=== PATIENT | male | born 1980 ===

== ENCOUNTER 2022-06-09 16:35 | Inpatient (IN) | payer SELFPAY ==
[~2022-06-09 16:35] MED LIST: Heparin 10,000 UNITS/ 10 ML VIAL ONE; Vancomycin Hemodialysis Sliding Scale FS SCH
[2022-06-09 16:58] LABS: #Eosinphils 0.1 thou/uL (0.0-0.7); #Lymphocytes 2.4 thou/uL (1.20-3.40); #Neutrophils 10.9 thou/uL (1.40-6.50); %Basophils 0.3 % (0.0-1.0); %Eosinophils 0.4 % (0.0-10.0); %Lymphocytes 16.6 % (21.0-51.0); %Monocytes 6.9 % (0.0-10.0); %Neutrophils 75.7 % (42.0-75.0); Hemoglobin 12.3 g/dL (14.0-18.0); Mean Corpuscular HGB CONC 31.2 g/dL (32.0-36.0); Mean Corpuscular Hemoglobin 30.7 pg (27.0-31.0); Mean Corpuscular Volume 98.3 fL (78.0-98.0); Platelet Count 320 thou/uL (130-400); RBC Distribution Width 12.3 % (11.5-14.5); Red Blood Cell (RBC) Count 4.03 mill/uL (4.70-6.10); White Blood Cell (WBC) Count 14.5 thou/uL (4.8-10.8)
[2022-06-09 17:09] LABS: INR-International Normal Ratio 1.5; PTT 35.3 sec (22.9-36.1); Prothrombin Time 18.3 sec (12.0-14.7)
[2022-06-09] MEDS ORDERED: Cefepime 2 GM VIAL ONE (17:09)
[2022-06-09 17:20] LABS: ALT (SGPT) 42 U/L (8-55); AST (SGOT) 71 U/L (5-34); Albumin 4.2 g/dL (3.5-5.0); Alkaline Phosphatase 101 U/L (40-110); BUN (Urea Nitrogen) 96 mg/dL (8.9-20.6); Bilirubin, Total 0.4 mg/dL (0.2-1.2); Calc. Creatinine Clearance 0 mL/min (70-130); Calcium 10.2 mg/dL (7.8-10.44); Chloride 86 mmol/L (98-107); Estimated GFR 4; Globulin 3.6 g/dL (2.4-3.5); Glucose 183 mg/dL (70-105); Potassium 5.4 mmol/L (3.5-5.1); Protein, Total 7.8 g/dL (6.0-8.3); Sodium 140 mmol/L (136-145)
[2022-06-09 17:34] LABS: Actual Bicarbonate (HCO3a) 1.6 mEq/L (22-28); Analyzer IN Cardio ER; Calcium, Ionized (arterial) 1.11 mmol/L (1.12-1.30); Carboxyhemoglobin (COHb) 0.1 gm% (0.0-3.0); Hemoglobin (Hb) 10.3 g/dL (14.0-18.0); O2 Tension (PaO2), arterial 217.5 mmHg (80.0-100.0); Potassium - ABG Lab 4.96 mmol/L (3.70-5.30)
[2022-06-09 17:37] LABS: Carbon Dioxide Less than 8 mmol/L (22-29)
[2022-06-09] MEDS ORDERED: Ketamine 50 MG/ML (10ML VIAL) ONE (17:44)
[2022-06-09] MEDS ORDERED: Succinylcholine 200 MG/10 ml SYRINGE FS ONE (17:44)
[2022-06-09] MEDS ORDERED: NOREPINEPHRINE 8 MG/250 ML-D5W 250 ML ONE (17:49)
[2022-06-09 17:58] LABS: Base Excess (BEa) -35.1 mEq/L (-2.0 to +3.0); CO2 Tension 16.9 mmHg (35.0-45.0)
[2022-06-09 17:59] LABS: ALV-art Gradient 474.375 mmHg (0-20); Puncture Site LBA
[2022-06-09 18:06] LABS: SARS-CoV-2 NAA Rapid Test Not Detected (NotDetected)
[2022-06-09 18:22] LABS: Actual Bicarbonate (HCO3a) 1.6 mEq/L (22-28); Analyzer IN Cardio ER; Calcium, Ionized (arterial) 1.12 mmol/L (1.12-1.30); Carboxyhemoglobin (COHb) 0.2 gm% (0.0-3.0); Hemoglobin (Hb) 11.2 g/dL (14.0-18.0); O2 Tension (PaO2), arterial 177.8 mmHg (80.0-100.0); Potassium - ABG Lab 5.21 mmol/L (3.70-5.30)
[2022-06-09] MEDS ORDERED: Fentanyl 100 MCG/2 ML VIAL ONE ×2 (18:27→18:34)
[2022-06-09 18:30] LABS: Acetaminophen Less than 10.0 mcg/mL (10.0-30.0); Alcohol Less than 10 mg/dL (Less than 10); CK (CPK) 900 U/L (30-200); Salicylate Less than 8.0 mg/dL (15.0-30.0)
[2022-06-09 18:30] LABS: pH, Arterial 6.54 (7.35-7.45)
[2022-06-09] MEDS ORDERED: Fentanyl CADD 100 ML IV SCH (18:30)
[2022-06-09 18:31] LABS: Base Excess (BEa) -36.9 mEq/L (-2.0 to +3.0); CO2 Tension 19.3 mmHg (35.0-45.0)
[2022-06-09] MEDS ORDERED: Rocuronium Bromide 10 MG/ML (10ML VIAL) ONE (18:33)
[2022-06-09] MEDS ORDERED: Vecuronium 10 MG VIAL IVP PRN (19:14)
[2022-06-09] MEDS ORDERED: Ventilator Sedation Protocol 1 EACH FS ONE (19:14)
[2022-06-09] MEDS ORDERED: Propofol BOLUS 1,000 MG/100 ML VIAL IV PRN (19:45)
[2022-06-09] MEDS ORDERED: Propofol 1,000 MG/100 ML VIAL IV PRN (19:45)
[2022-06-09] MEDS ORDERED: DISCONTINUE PREVIOUS NARCOTIC PAIN MEDICATIONS AND BENZODIAZEPINES FS SCH (19:45)
[2022-06-09] MEDS ORDERED: Fentanyl BOLUS 250 ML IVPB PRN (19:45)
[2022-06-09] MEDS ORDERED: Morphine 2 MG/ML VIAL SLOW IVP PRN (19:45)
[2022-06-09] MEDS ORDERED: Sodium Bicarb 50 MEQ/50 ML VIAL ONE (19:57)
[2022-06-09] MEDS ORDERED: Ondansetron PF 4 MG/2 ML Vial IVP PRN (19:58)
[2022-06-09] MEDS ORDERED: Sodium Bicarb 50 MEQ/50 ML VIAL IVP SCH (20:00)
[2022-06-09] MEDS ORDERED: Pantoprazole 40 MG VIAL IVP SCH (20:00)
[2022-06-09] MEDS ORDERED: Acetaminophen 650 MG/20.3 ML UDCUP PER TUBE PRN (20:05)
[2022-06-09] MEDS: Sodium Bicarbonate 140 MEQ in Dextrose 5% in Water 1,000 ML IV SCH (20:05)
[2022-06-09] MEDS ORDERED: VANCOMYCIN 1.25 GM/250 ML BAG 1.25 GM in Premix Bag 1 BAG IVPB SCH (20:30)
[2022-06-09 20:46] LABS: Magnesium 2.8 mg/dL (1.6-2.6)
[2022-06-09] MEDS: Thiamine HCl 200 MG/2 ML VIAL SLOW IVP SCH (21:09)
[2022-06-09 21:12] LABS: Lactic Acid 22.1 mmol/L (0.5-2.2)
[2022-06-09] MEDS ORDERED: HumaLOG 300 UNITS/3 ML VIAL SC PRN (21:25)
[2022-06-09] MEDS ORDERED: Dextrose 50% Abboject 50 ML SYRINGE SLOW IVP PRN (21:25)
[2022-06-09] MEDS ORDERED: Dextrose 5% in Water 1,000 ML IV PRN (21:25)
[2022-06-09 22:39] LABS: Hemoglobin 11.5 g/dL (14.0-18.0)
[2022-06-09] MEDS: NOREPINEPHRINE 8 MG/250 ML-D5W 250 ML IVPB SCH (22:42)
[2022-06-09] MEDS: HumaLOG 300 UNITS/3 ML VIAL SC PRN (22:50)
[2022-06-09 23:18] LABS: Troponin I 0.447 ng/mL (< 0.028)
[2022-06-10 00:22] LABS: HBSAg Index 0.24 S/CO (0-0.99); Hep B Core Total Ab Non-Reactive (NonReactive); Hep B Core Total Index 0.08 S/CO (0-0.79); Hep B Surf Ag Non-Reactive S/CO (NonReactive)
[2022-06-10 00:23] LABS: HBSAB Concentration Less than 8.00 mIU/mL; Hep B Surf AB Non-Reactive (NonReactive)
[2022-06-10 00:24] LABS: Hep C IgG Ab Non-Reactive (NonReactive); Hep C Index 0.13 S/CO (0-0.79)
[2022-06-10 01:40] LABS: BUN (Urea Nitrogen) 57 mg/dL (8.9-20.6); Calc. Creatinine Clearance 10 mL/min (70-130); Calcium 7.6 mg/dL (7.8-10.44); Carbon Dioxide Less than 8 mmol/L (22-29); Chloride 94 mmol/L (98-107); Estimated GFR 8; Glucose 243 mg/dL (70-105); Potassium 4.6 mmol/L (3.5-5.1); Sodium 137 mmol/L (136-145)
[2022-06-10] MEDS: NOREPINEPHRINE 8 MG/250 ML-D5W 250 ML IVPB SCH ×3 (02:09→15:45)
[2022-06-10] MEDS: Midazolam HCl 2 mg/2 ml Vial SLOW IVP PRN ×4 (02:39→14:17)
[2022-06-10] MEDS: HumaLOG 300 UNITS/3 ML VIAL SC PRN ×2 (04:27→20:48)
[2022-06-10 05:14] LABS: PTT 33.4 sec (22.9-36.1)
[2022-06-10 05:31] LABS: INR-International Normal Ratio 1.5; Prothrombin Time 18.1 sec (12.0-14.7)
[2022-06-10 05:35] LABS: ALT (SGPT) 195 U/L (8-55); AST (SGOT) 351 U/L (5-34); Albumin 2.8 g/dL (3.5-5.0); Alkaline Phosphatase 112 U/L (40-110); Anion Gap 44 mmol/L (10-20); BUN (Urea Nitrogen) 61 mg/dL (8.9-20.6); Bilirubin, Total 0.7 mg/dL (0.2-1.2); CK (CPK) 622 U/L (30-200); Calc. Creatinine Clearance 10 mL/min (70-130); Calcium 6.8 mg/dL (7.8-10.44); Carbon Dioxide 9 mmol/L (22-29); Chloride 86 mmol/L (98-107); Estimated GFR 8; Globulin 2.3 g/dL (2.4-3.5); Glucose 587 mg/dL (70-105); Lipase 174 U/L (8-78); Magnesium 1.8 mg/dL (1.6-2.6); Potassium 5.7 mmol/L (3.5-5.1); Protein, Total 5.1 g/dL (6.0-8.3); Sodium 133 mmol/L (136-145)
[2022-06-10 05:43] LABS: Band 2 % (5-11); Hemoglobin 11.3 g/dL (14.0-18.0); Lymphocytes 1 % (21-51); MDiff Complete? YES; Mean Corpuscular Hemoglobin 31.5 pg (27.0-31.0); Mean Corpuscular Volume 95.4 fL (78.0-98.0); Mean Platelet Volume 8.5 fL (7.4-10.4); Monocytes 8 % (0-10); Neutrophil 89 % (42-75); Platelet Count 248 thou/uL (130-400); Platelet Morphology Comment Appears Adequate; RBC Distribution Width 12.1 % (11.5-14.5); RBC Morphology Normal; Red Blood Cell (RBC) Count 3.59 mill/uL (4.70-6.10); White Blood Cell (WBC) Count 20.6 thou/uL (4.8-10.8)
[2022-06-10] MEDS ORDERED: HumaLOG 300 UNITS/3 ML VIAL SC PRN (05:45)
[2022-06-10 05:47] LABS: Lactic Acid 13.9 mmol/L (0.5-2.2)
[2022-06-10 06:43] LABS: ALT (SGPT) 204 U/L (8-55); AST (SGOT) 345 U/L (5-34); Alkaline Phosphatase 119 U/L (40-110); Anion Gap 42 mmol/L (10-20); BUN (Urea Nitrogen) 64 mg/dL (8.9-20.6); Bilirubin, Total 0.7 mg/dL (0.2-1.2); Calc. Creatinine Clearance 10 mL/min (70-130); Chloride 88 mmol/L (98-107); Estimated GFR 7; Globulin 2.4 g/dL (2.4-3.5); Glucose 515 mg/dL (70-105); Potassium 5.9 mmol/L (3.5-5.1); Protein, Total 5.4 g/dL (6.0-8.3); Sodium 132 mmol/L (136-145)
[2022-06-10 06:45] LABS: Vancomycin, Random 23.8 ug/mL (See Comment)
[2022-06-10 06:46] LABS: Carbon Dioxide 8 mmol/L (22-29)
[2022-06-10] MEDS: Sodium Bicarbonate 140 MEQ in Dextrose 5% in Water 1,000 ML IV SCH ×2 (07:33→18:27)
[2022-06-10 07:38] LABS: Actual Bicarbonate (HCO3a) 7.6 mEq/L (22-28); Base Excess (BEa) -17.2 mEq/L (-2.0 to +3.0); Carboxyhemoglobin (COHb) 0.2 gm% (0.0-3.0); Hemoglobin (Hb) 11.9 g/dL (14.0-18.0); O2 Tension (PaO2), arterial 111.1 mmHg (80.0-100.0); Potassium - ABG Lab 5.46 mmol/L (3.70-5.30); pH, Arterial 7.26 (7.35-7.45)
[2022-06-10] MEDS ORDERED: HUMULIN R 100 UNITS in Sodium Chloride 0.9% 100 ML IVPB SCH (07:45)
[2022-06-10 07:46] LABS: CO2 Tension 17.3 mmHg (35.0-45.0); Puncture Site RRA
[2022-06-10 07:47] LABS: ALV-art Gradient 81.175 mmHg (0-20)
[2022-06-10 08:21] LABS: Glucose 480 mg/dL (70-105)
[2022-06-10] MEDS: Pantoprazole 40 MG VIAL IVP SCH (08:21)
[2022-06-10] MEDS ORDERED: Heparin 10,000 UNITS/ 10 ML VIAL ONE (09:32)
[2022-06-10 09:33] LABS: Glucose 475 mg/dL (70-105)
[2022-06-10 10:33] LABS: Glucose 392 mg/dL (70-105)
[2022-06-10 11:04] LABS: Bilirubin Negative (Negative); Blood, Urine 3+ (Negative); Clarity Extra Turbid (Clear); Glucose, Urine (Dipstick) 200 mg/dL (Negative); Ketone, Urine 10 mg/dL (Negative); Leukocyte 25 Leu/uL (Negative); Nitrite Negative (Negative); Protein, Urine (Dipstick) 600 mg/dL (Neg-Trace); Specific Gravity, Urine 1.025 (1.002-1.036); Squamous Epithelial 0-3 HPF (0-3); Urobilinogen Normal mg/dL (Less than 2); Yeast-Budding 2+ HPF (None Seen)
[2022-06-10 11:15] LABS: Bacteria/HPF 2+ HPF (None Seen)
[2022-06-10 11:44] LABS: Glucose 200 mg/dL (70-105)
[2022-06-10 15:23] LABS: Glucose 138 mg/dL (70-105)
[2022-06-10] MEDS ORDERED: Cefepime 1 GM in Sodium Chloride 0.9% 100 ML IVPB SCH (17:00)
[2022-06-10] MEDS ORDERED: Cefepime 0.5 GM in Admixture Fee 1 EACH IVPB SCH (17:00)
[2022-06-10] MEDS: Cefepime 0.5 GM in Admixture Fee 1 EACH IVPB SCH (18:26)
[2022-06-10] MEDS ORDERED: Fentanyl CADD 100 ML ONE (18:48)
[2022-06-10] MEDS: Fentanyl CADD 100 ML IV SCH (18:50)
[2022-06-10 20:30] LABS: Glucose 273 mg/dL (70-105)
[2022-06-10 20:32] LABS: Creatinine, Urine 92.02 mg/dL (63-166)
[2022-06-10] MEDS: Thiamine HCl 200 MG/2 ML VIAL SLOW IVP SCH (20:46)
[2022-06-11 00:49] LABS: Glucose 259 mg/dL (70-105)
[2022-06-11] MEDS: Midazolam HCl 2 mg/2 ml Vial SLOW IVP PRN (00:58)
[2022-06-11] MEDS: HumaLOG 300 UNITS/3 ML VIAL SC PRN ×5 (01:07→20:01)
[2022-06-11 04:57] LABS: #Lymphocytes 1.5 thou/uL (1.20-3.40); #Monocytes 0.9 thou/uL (0.11-0.59); #Neutrophils 8.6 thou/uL (1.40-6.50); %Basophils 0.2 % (0.0-1.0); %Eosinophils 0.2 % (0.0-10.0); %Lymphocytes 13.7 % (21.0-51.0); %Monocytes 8.3 % (0.0-10.0); %Neutrophils 77.6 % (42.0-75.0); Hemoglobin 10.2 g/dL (14.0-18.0); Mean Corpuscular HGB CONC 35.4 g/dL (32.0-36.0); Mean Corpuscular Hemoglobin 31.7 pg (27.0-31.0); Mean Corpuscular Volume 89.4 fL (78.0-98.0); Mean Platelet Volume 8.4 fL (7.4-10.4); Platelet Count 153 thou/uL (130-400); Red Blood Cell (RBC) Count 3.22 mill/uL (4.70-6.10)
[2022-06-11 05:03] LABS: Phosphorus 3.3 mg/dL (2.3-4.7)
[2022-06-11] MEDS: Sodium Bicarbonate 140 MEQ in Dextrose 5% in Water 1,000 ML IV SCH ×2 (05:04→17:36)
[2022-06-11 05:05] LABS: ALT (SGPT) 129 U/L (8-55); AST (SGOT) 126 U/L (5-34); Albumin 2.7 g/dL (3.5-5.0); Alkaline Phosphatase 99 U/L (40-110); Anion Gap 26 mmol/L (10-20); BUN (Urea Nitrogen) 45 mg/dL (8.9-20.6); Calc. Creatinine Clearance 14 mL/min (70-130); Calcium 7.3 mg/dL (7.8-10.44); Carbon Dioxide 20 mmol/L (22-29); Chloride 90 mmol/L (98-107); Estimated GFR 11; Globulin 2.1 g/dL (2.4-3.5); Glucose 238 mg/dL (70-105); Magnesium 1.7 mg/dL (1.6-2.6); Potassium 3.7 mmol/L (3.5-5.1); Protein, Total 4.8 g/dL (6.0-8.3); Sodium 132 mmol/L (136-145)
[2022-06-11 05:08] LABS: Glucose 234 mg/dL (70-105)
[2022-06-11 05:13] LABS: Troponin I 4.358 ng/mL (< 0.028)
[2022-06-11 06:30] LABS: Vancomycin, Random 15.8 ug/mL (See Comment)
[2022-06-11 07:52] LABS: Actual Bicarbonate (HCO3a) 22.6 mEq/L (22-28); Base Excess (BEa) 3.9 mEq/L (-2.0 to +3.0); Calcium, Ionized (arterial) 0.88 mmol/L (1.12-1.30); Carboxyhemoglobin (COHb) 0.3 gm% (0.0-3.0); Hemoglobin (Hb) 10.8 g/dL (14.0-18.0); O2 Tension (PaO2), arterial 134.6 mmHg (80.0-100.0); Potassium - ABG Lab 3.12 mmol/L (3.70-5.30)
[2022-06-11 07:59] LABS: ALV-art Gradient 55.425 mmHg (0-20); CO2 Tension 19.1 mmHg (35.0-45.0); Puncture Site RRA; pH, Arterial 7.69 (7.35-7.45)
[2022-06-11] MEDS: Pantoprazole 40 MG VIAL IVP SCH (08:35)
[2022-06-11] MEDS ORDERED: Heparin 10,000 UNITS/ 10 ML VIAL ONE (09:35)
[2022-06-11] MEDS: Fentanyl CADD 100 ML IV SCH (16:53)
[2022-06-11] MEDS ORDERED: Vancomycin HCl 250 MG in Sodium Chloride 0.9% 100 ML IVPB SCH (17:00)
[2022-06-11] MEDS: Thiamine HCl 200 MG/2 ML VIAL SLOW IVP SCH (20:32)
[2022-06-11] MEDS: Heparin 5,000 UNITS/ML VIAL SC SCH (20:33)
[2022-06-11] MEDS: Insulin Glargine 30 UNITS/0.3 ML VIAL SC SCH (22:17)
[2022-06-12] MEDS: HumaLOG 300 UNITS/3 ML VIAL SC PRN ×5 (01:00→20:17)
[2022-06-12 04:15] LABS: ALT (SGPT) 89 U/L (8-55); AST (SGOT) 72 U/L (5-34); Albumin 2.5 g/dL (3.5-5.0); Alkaline Phosphatase 112 U/L (40-110); Anion Gap 14 mmol/L (10-20); BUN (Urea Nitrogen) 24 mg/dL (8.9-20.6); Bilirubin, Total 0.9 mg/dL (0.2-1.2); Calc. Creatinine Clearance 24 mL/min (70-130); Calcium 7.3 mg/dL (7.8-10.44); Carbon Dioxide 30 mmol/L (22-29); Chloride 94 mmol/L (98-107); Estimated GFR 20; Globulin 2.2 g/dL (2.4-3.5); Glucose 273 mg/dL (70-105); Magnesium 1.6 mg/dL (1.6-2.6); Potassium 3.1 mmol/L (3.5-5.1); Protein, Total 4.7 g/dL (6.0-8.3); Sodium 135 mmol/L (136-145)
[2022-06-12 04:45] LABS: #Eosinphils 0.1 thou/uL (0.0-0.7); #Lymphocytes 0.8 thou/uL (1.20-3.40); #Monocytes 0.4 thou/uL (0.11-0.59); #Neutrophils 8.2 thou/uL (1.40-6.50); %Basophils 0.3 % (0.0-1.0); %Eosinophils 0.6 % (0.0-10.0); %Lymphocytes 8.6 % (21.0-51.0); %Monocytes 4.1 % (0.0-10.0); %Neutrophils 86.4 % (42.0-75.0); Hemoglobin 9.3 g/dL (14.0-18.0); Large Platelets SLIGHT; MDiff Complete? YES; Mean Corpuscular HGB CONC 34.7 g/dL (32.0-36.0); Mean Corpuscular Hemoglobin 31.7 pg (27.0-31.0); Mean Corpuscular Volume 91.2 fL (78.0-98.0); Mean Platelet Volume 9.2 fL (7.4-10.4); Platelet Count 92 thou/uL (130-400); Platelet Morphology Comment Appears Decreased; RBC Distribution Width 11.9 % (11.5-14.5); RBC Morphology Normal; Red Blood Cell (RBC) Count 2.92 mill/uL (4.70-6.10); White Blood Cell (WBC) Count 9.5 thou/uL (4.8-10.8)
[2022-06-12] MEDS: Sodium Bicarbonate 140 MEQ in Dextrose 5% in Water 1,000 ML IV SCH (05:27)
[2022-06-12 07:51] LABS: Actual Bicarbonate (HCO3a) 33.7 mEq/L (22-28); Base Excess (BEa) 11.2 mEq/L (-2.0 to +3.0); Calcium, Ionized (arterial) 0.92 mmol/L (1.12-1.30); Carboxyhemoglobin (COHb) 0.3 gm% (0.0-3.0); Hemoglobin (Hb) 9.3 g/dL (14.0-18.0); O2 Tension (PaO2), arterial 84.3 mmHg (80.0-100.0); Potassium - ABG Lab 2.91 mmol/L (3.70-5.30)
[2022-06-12 08:08] LABS: Puncture Site RB; pH, Arterial 7.59 (7.35-7.45)
[2022-06-12] MEDS: Pantoprazole 40 MG VIAL IVP SCH (08:51)
[2022-06-12] MEDS: NS 0.9% w/ 40 MEQ KCL 1,000 ML IV SCH ×2 (11:14→20:36)
[2022-06-12] MEDS ORDERED: Magnesium 2 GM/50 ML(in water) 2 GM in Premix Bag 1 BAG IVPB SCH (12:45)
[2022-06-12] MEDS: Heparin 5,000 UNITS/ML VIAL SC SCH (13:59)
[2022-06-12] MEDS: Cefepime 0.5 GM in Admixture Fee 1 EACH IVPB SCH (18:23)
[2022-06-12] MEDS: Insulin Glargine 30 UNITS/0.3 ML VIAL SC SCH (20:17)
[2022-06-12] MEDS: Thiamine HCl 200 MG/2 ML VIAL SLOW IVP SCH (20:27)
[2022-06-13] MEDS: NS 0.9% w/ 40 MEQ KCL 1,000 ML IV SCH ×2 (04:42→09:32)
[2022-06-13 05:51] LABS: #Lymphocytes 0.8 thou/uL (1.20-3.40); #Monocytes 0.6 thou/uL (0.11-0.59); #Neutrophils 7.2 thou/uL (1.40-6.50); %Basophils 0.2 % (0.0-1.0); %Eosinophils 0.2 % (0.0-10.0); %Lymphocytes 9.5 % (21.0-51.0); %Monocytes 6.5 % (0.0-10.0); %Neutrophils 83.6 % (42.0-75.0); Hemoglobin 8.7 g/dL (14.0-18.0); Mean Corpuscular Hemoglobin 30.8 pg (27.0-31.0); Mean Corpuscular Volume 90.6 fL (78.0-98.0); Mean Platelet Volume 9.2 fL (7.4-10.4); Platelet Count 89 thou/uL (130-400); RBC Distribution Width 11.8 % (11.5-14.5); Red Blood Cell (RBC) Count 2.82 mill/uL (4.70-6.10); White Blood Cell (WBC) Count 8.7 thou/uL (4.8-10.8)
[2022-06-13 06:17] LABS: ALT (SGPT) 60 U/L (8-55); AST (SGOT) 49 U/L (5-34); Albumin 2.5 g/dL (3.5-5.0); Alkaline Phosphatase 140 U/L (40-110); Anion Gap 14 mmol/L (10-20); BUN (Urea Nitrogen) 37 mg/dL (8.9-20.6); Bilirubin, Total 0.5 mg/dL (0.2-1.2); Calc. Creatinine Clearance 18 mL/min (70-130); Calcium 7.2 mg/dL (7.8-10.44); Carbon Dioxide 27 mmol/L (22-29); Chloride 99 mmol/L (98-107); Estimated GFR 14; Globulin 2.3 g/dL (2.4-3.5); Glucose 162 mg/dL (70-105); Potassium 3.6 mmol/L (3.5-5.1); Protein, Total 4.8 g/dL (6.0-8.3); Sodium 136 mmol/L (136-145)
[2022-06-13 06:50] LABS: Actual Bicarbonate (HCO3a) 28.2 mEq/L (22-28); Base Excess (BEa) 7.1 mEq/L (-2.0 to +3.0); CO2 Tension 27.7 mmHg (35.0-45.0); Calcium, Ionized (arterial) 0.98 mmol/L (1.12-1.30); Carboxyhemoglobin (COHb) 0.3 gm% (0.0-3.0); Hemoglobin (Hb) 9.1 g/dL (14.0-18.0); O2 Tension (PaO2), arterial 76.5 mmHg (80.0-100.0); Potassium - ABG Lab 3.59 mmol/L (3.70-5.30)
[2022-06-13 06:54] LABS: ALV-art Gradient 102.775 mmHg (0-20); Puncture Site RRA; pH, Arterial 7.63 (7.35-7.45)
[2022-06-13] MEDS ORDERED: Heparin 5,000 UNITS/ML VIAL SC SCH (09:00)
[2022-06-13] MEDS: Pantoprazole 40 MG VIAL IVP SCH (09:31)
[2022-06-13] MEDS ORDERED: Heparin 10,000 UNITS/ 10 ML VIAL ONE (12:45)
[2022-06-13] MEDS: Cefepime 0.5 GM in Admixture Fee 1 EACH IVPB SCH (18:44)
[2022-06-13] MEDS: Insulin Glargine 30 UNITS/0.3 ML VIAL SC SCH (20:57)
[2022-06-13] MEDS: Thiamine HCl 200 MG/2 ML VIAL SLOW IVP SCH (20:58)
[2022-06-13] MEDS ORDERED: Dexamethasone 4 mg/ml Vial SLOW IVP SCH (23:45)
[2022-06-13] MEDS ORDERED: Furosemide 40 MG/4 ML VIAL SLOW IVP SCH (23:45)
[2022-06-14 00:55] LABS: #Lymphocytes 0.5 thou/uL (1.20-3.40); #Monocytes 0.5 thou/uL (0.11-0.59); #Neutrophils 10.2 thou/uL (1.40-6.50); %Basophils 0.2 % (0.0-1.0); %Eosinophils 0.2 % (0.0-10.0); %Lymphocytes 4.6 % (21.0-51.0); %Monocytes 4.7 % (0.0-10.0); %Neutrophils 90.3 % (42.0-75.0); Hemoglobin 9.5 g/dL (14.0-18.0); Mean Corpuscular HGB CONC 34.9 g/dL (32.0-36.0); Mean Corpuscular Hemoglobin 32.5 pg (27.0-31.0); Mean Corpuscular Volume 93.1 fL (78.0-98.0); Mean Platelet Volume 9.3 fL (7.4-10.4); Platelet Count 105 thou/uL (130-400); RBC Distribution Width 11.8 % (11.5-14.5); Red Blood Cell (RBC) Count 2.92 mill/uL (4.70-6.10); White Blood Cell (WBC) Count 11.3 thou/uL (4.8-10.8)
[2022-06-14 01:14] LABS: ALT (SGPT) 56 U/L (8-55); AST (SGOT) 42 U/L (5-34); Albumin 2.7 g/dL (3.5-5.0); Alkaline Phosphatase 156 U/L (40-110); Anion Gap 12 mmol/L (10-20); BUN (Urea Nitrogen) 24 mg/dL (8.9-20.6); Bilirubin, Total 0.8 mg/dL (0.2-1.2); Calc. Creatinine Clearance 26 mL/min (70-130); Calcium 7.6 mg/dL (7.8-10.44); Carbon Dioxide 27 mmol/L (22-29); Chloride 105 mmol/L (98-107); Estimated GFR 22; Globulin 2.5 g/dL (2.4-3.5); Glucose 147 mg/dL (70-105); Potassium 4.3 mmol/L (3.5-5.1); Protein, Total 5.2 g/dL (6.0-8.3); Sodium 140 mmol/L (136-145)
[2022-06-14] MEDS ORDERED: Acetaminophen 650 MG Suppository PR SCH (02:15)
[2022-06-14] MEDS: NS 0.9% w/ 40 MEQ KCL 1,000 ML IV SCH ×2 (02:25→12:37)
[2022-06-14] MEDS ORDERED: Meropenem 1 GM in Sodium Chloride 0.9% 100 ML IVPB SCH (03:00)
[2022-06-14] MEDS: Pantoprazole 40 MG VIAL IVP SCH (10:06)
[2022-06-14] MEDS: Meropenem 500 MG in Sodium Chloride 0.9% 100 ML IVPB SCH (10:12)
[2022-06-14] MEDS: HumaLOG 300 UNITS/3 ML VIAL SC PRN (12:12)
[2022-06-14 16:13] LABS: Heparin-Induced Ab (HITA) 0.13 OD (0.000-0.400)
[2022-06-14] MEDS: Insulin Glargine 30 UNITS/0.3 ML VIAL SC SCH (21:38)
[2022-06-14] MEDS: Thiamine HCl 200 MG/2 ML VIAL SLOW IVP SCH (21:39)
[2022-06-14] MEDS: Heparin 5,000 UNITS/ML VIAL SC SCH (21:39)
[2022-06-15 04:30] LABS: #Lymphocytes 0.9 thou/uL (1.20-3.40); #Monocytes 0.9 thou/uL (0.11-0.59); #Neutrophils 8.9 thou/uL (1.40-6.50); %Basophils 0.1 % (0.0-1.0); %Eosinophils 0.1 % (0.0-10.0); %Lymphocytes 8.6 % (21.0-51.0); %Monocytes 8.6 % (0.0-10.0); %Neutrophils 82.7 % (42.0-75.0); Hemoglobin 9.1 g/dL (14.0-18.0); Mean Corpuscular HGB CONC 33.7 g/dL (32.0-36.0); Mean Corpuscular Hemoglobin 31.2 pg (27.0-31.0); Mean Corpuscular Volume 92.7 fL (78.0-98.0); Platelet Count 146 thou/uL (130-400); RBC Distribution Width 11.9 % (11.5-14.5); Red Blood Cell (RBC) Count 2.93 mill/uL (4.70-6.10); White Blood Cell (WBC) Count 10.8 thou/uL (4.8-10.8)
[2022-06-15 04:50] LABS: ALT (SGPT) 41 U/L (8-55); AST (SGOT) 27 U/L (5-34); Albumin 2.5 g/dL (3.5-5.0); Alkaline Phosphatase 149 U/L (40-110); Anion Gap 14 mmol/L (10-20); BUN (Urea Nitrogen) 41 mg/dL (8.9-20.6); Bilirubin, Total 0.7 mg/dL (0.2-1.2); Calc. Creatinine Clearance 21 mL/min (70-130); Calcium 7.9 mg/dL (7.8-10.44); Carbon Dioxide 26 mmol/L (22-29); Chloride 106 mmol/L (98-107); Estimated GFR 18; Globulin 2.8 g/dL (2.4-3.5); Glucose 161 mg/dL (70-105); Potassium 3.8 mmol/L (3.5-5.1); Protein, Total 5.3 g/dL (6.0-8.3); Sodium 142 mmol/L (136-145)
[2022-06-15] MEDS ORDERED: Heparin 10,000 UNITS/ 10 ML VIAL ONE (08:18)
[2022-06-15] MEDS: Heparin 5,000 UNITS/ML VIAL SC SCH ×2 (09:26→20:07)
[2022-06-15] MEDS: Pantoprazole 40 MG VIAL IVP SCH (09:26)
[2022-06-15] MEDS: Meropenem 500 MG in Sodium Chloride 0.9% 100 ML IVPB SCH (10:55)
[2022-06-15] MEDS: Insulin Glargine 30 UNITS/0.3 ML VIAL SC SCH (20:06)
[2022-06-15] MEDS: Thiamine HCl 200 MG/2 ML VIAL SLOW IVP SCH (20:07)
[2022-06-16 04:36] LABS: Hemoglobin A1c 9.1 % (4.0-6.0)
[2022-06-16 04:59] LABS: Anion Gap 12 mmol/L (10-20); BUN (Urea Nitrogen) 18 mg/dL (8.9-20.6); Calc. Creatinine Clearance 42 mL/min (70-130); Calcium 8.2 mg/dL (7.8-10.44); Carbon Dioxide 29 mmol/L (22-29); Chloride 102 mmol/L (98-107); Estimated GFR 44; Glucose 95 mg/dL (70-105); Potassium 3.6 mmol/L (3.5-5.1); Sodium 139 mmol/L (136-145)
[2022-06-16 05:52] LABS: Band 14 % (5-11); Eosinophils 1 % (0-10); Hemoglobin 10.2 g/dL (14.0-18.0); Lymphocytes 17 % (21-51); MDiff Complete? YES; Mean Corpuscular HGB CONC 33.6 g/dL (32.0-36.0); Mean Corpuscular Volume 92.4 fL (78.0-98.0); Monocytes 9 % (0-10); Neutrophil 56 % (42-75); Platelet Count 183 thou/uL (130-400); RBC Distribution Width 11.7 % (11.5-14.5); Reactive Lymphocytes 1 % (0-10); Red Blood Cell (RBC) Count 3.28 mill/uL (4.70-6.10); White Blood Cell (WBC) Count 5.5 thou/uL (4.8-10.8)
[2022-06-16] MEDS: Pantoprazole 40 MG VIAL IVP SCH (09:09)
[2022-06-16] MEDS: Heparin 5,000 UNITS/ML VIAL SC SCH ×2 (09:09→19:51)
[2022-06-16] MEDS: Meropenem 500 MG in Sodium Chloride 0.9% 100 ML IVPB SCH (10:28)
[2022-06-16] MEDS: Nystatin 500,000 UNITS/5 ML UDCUP SSW SCH ×3 (11:38→19:52)
[2022-06-16] MEDS ORDERED: Nystatin 100,000 Units/mL UDCUP SSW SCH (13:00)
[2022-06-16] MEDS: Insulin Glargine 30 UNITS/0.3 ML VIAL SC SCH (19:50)
[2022-06-16] MEDS: Thiamine HCl 200 MG/2 ML VIAL SLOW IVP SCH (19:52)
[2022-06-17 04:58] LABS: Anion Gap 11 mmol/L (10-20); BUN (Urea Nitrogen) 26 mg/dL (8.9-20.6); Calc. Creatinine Clearance 37 mL/min (70-130); Calcium 7.8 mg/dL (7.8-10.44); Carbon Dioxide 29 mmol/L (22-29); Chloride 103 mmol/L (98-107); Estimated GFR 38; Glucose 167 mg/dL (70-105); Potassium 3.2 mmol/L (3.5-5.1); Sodium 140 mmol/L (136-145)
[2022-06-17 05:03] LABS: Band 22 % (5-11); Hemoglobin 9.2 g/dL (14.0-18.0); Lymphocytes 34 % (21-51); MDiff Complete? YES; Mean Corpuscular HGB CONC 33.4 g/dL (32.0-36.0); Mean Corpuscular Hemoglobin 30.7 pg (27.0-31.0); Mean Corpuscular Volume 91.8 fL (78.0-98.0); Mean Platelet Volume 7.9 fL (7.4-10.4); Monocytes 20 % (0-10); Neutrophil 23 % (42-75); Platelet Count 187 thou/uL (130-400); RBC Distribution Width 11.8 % (11.5-14.5); Reactive Lymphocytes 1 % (0-10); Red Blood Cell (RBC) Count 2.98 mill/uL (4.70-6.10); White Blood Cell (WBC) Count 4.7 thou/uL (4.8-10.8)
[2022-06-17] MEDS: Heparin 5,000 UNITS/ML VIAL SC SCH ×2 (08:52→20:19)
[2022-06-17] MEDS: Nystatin 500,000 UNITS/5 ML UDCUP SSW SCH ×4 (08:53→20:18)
[2022-06-17] MEDS: Pantoprazole 40 MG VIAL IVP SCH (08:53)
[2022-06-17] MEDS: Meropenem 500 MG in Sodium Chloride 0.9% 100 ML IVPB SCH (11:19)
[2022-06-17] MEDS: Insulin Glargine 30 UNITS/0.3 ML VIAL SC SCH (20:18)
[2022-06-17] MEDS: Thiamine HCl 200 MG/2 ML VIAL SLOW IVP SCH (20:19)
[2022-06-18 05:01] LABS: #Eosinphils 0.1 thou/uL (0.0-0.7); #Lymphocytes 1.6 thou/uL (1.20-3.40); #Monocytes 0.7 thou/uL (0.11-0.59); %Basophils 0.5 % (0.0-1.0); %Eosinophils 1.4 % (0.0-10.0); %Lymphocytes 29.9 % (21.0-51.0); %Monocytes 13.4 % (0.0-10.0); %Neutrophils 54.8 % (42.0-75.0); Mean Corpuscular HGB CONC 34.1 g/dL (32.0-36.0); Mean Corpuscular Hemoglobin 31.3 pg (27.0-31.0); Mean Corpuscular Volume 91.5 fL (78.0-98.0); Platelet Count 214 thou/uL (130-400); RBC Distribution Width 11.7 % (11.5-14.5); Red Blood Cell (RBC) Count 2.89 mill/uL (4.70-6.10); White Blood Cell (WBC) Count 5.5 thou/uL (4.8-10.8)
[2022-06-18] MEDS: HumaLOG 300 UNITS/3 ML VIAL SC PRN (05:37)
[2022-06-18 06:34] LABS: Anion Gap 11 mmol/L (10-20); BUN (Urea Nitrogen) 29 mg/dL (8.9-20.6); Calc. Creatinine Clearance 42 mL/min (70-130); Carbon Dioxide 28 mmol/L (22-29); Chloride 104 mmol/L (98-107); Estimated GFR 43; Glucose 227 mg/dL (70-105); Sodium 140 mmol/L (136-145)
[2022-06-18 07:40] VITALS: BMI 21.3
[2022-06-18] MEDS: Heparin 5,000 UNITS/ML VIAL SC SCH ×2 (09:40→20:59)
[2022-06-18] MEDS: Nystatin 500,000 UNITS/5 ML UDCUP SSW SCH ×4 (09:40→20:58)
[2022-06-18] MEDS: Pantoprazole 40 MG VIAL IVP SCH (09:41)
[2022-06-18] MEDS: Meropenem 500 MG in Sodium Chloride 0.9% 100 ML IVPB SCH (11:40)
[2022-06-18] MEDS: Insulin Glargine 30 UNITS/0.3 ML VIAL SC SCH (20:58)
[2022-06-18] MEDS: Thiamine HCl 200 MG/2 ML VIAL SLOW IVP SCH (20:59)
[2022-06-19 04:02] LABS: #Eosinphils 0.1 thou/uL (0.0-0.7); #Lymphocytes 1.7 thou/uL (1.20-3.40); #Monocytes 0.5 thou/uL (0.11-0.59); #Neutrophils 3.4 thou/uL (1.40-6.50); %Basophils 0.7 % (0.0-1.0); %Eosinophils 2.2 % (0.0-10.0); %Lymphocytes 30.3 % (21.0-51.0); %Monocytes 8.1 % (0.0-10.0); %Neutrophils 58.7 % (42.0-75.0); Hemoglobin 9.6 g/dL (14.0-18.0); Mean Corpuscular HGB CONC 33.6 g/dL (32.0-36.0); Mean Corpuscular Hemoglobin 30.5 pg (27.0-31.0); Mean Corpuscular Volume 90.9 fL (78.0-98.0); Mean Platelet Volume 7.6 fL (7.4-10.4); Platelet Count 253 thou/uL (130-400); RBC Distribution Width 11.6 % (11.5-14.5); Red Blood Cell (RBC) Count 3.13 mill/uL (4.70-6.10); White Blood Cell (WBC) Count 5.7 thou/uL (4.8-10.8)
[2022-06-19 04:29] LABS: Anion Gap 13 mmol/L (10-20); BUN (Urea Nitrogen) 25 mg/dL (8.9-20.6); Calc. Creatinine Clearance 52 mL/min (70-130); Calcium 8.1 mg/dL (7.8-10.44); Carbon Dioxide 26 mmol/L (22-29); Chloride 107 mmol/L (98-107); Estimated GFR 56; Glucose 112 mg/dL (70-105); Sodium 143 mmol/L (136-145)
[2022-06-19 04:38] LABS: Potassium 2.9 mmol/L (3.5-5.1)
[2022-06-19] MEDS ORDERED: Potassium Chloride 20 MEQ TAB PO SCH (09:00)
[2022-06-19] MEDS: Nystatin 500,000 UNITS/5 ML UDCUP SSW SCH ×4 (09:51→21:39)
[2022-06-19] MEDS: Heparin 5,000 UNITS/ML VIAL SC SCH ×2 (09:51→21:40)
[2022-06-19] MEDS: Pantoprazole 40 MG VIAL IVP SCH (09:52)
[2022-06-19] MEDS: Meropenem 1 GM in Sodium Chloride 0.9% 100 ML IVPB SCH ×2 (14:08→21:39)
[2022-06-19] MEDS: Meropenem 500 MG in Sodium Chloride 0.9% 100 ML IVPB SCH (14:19)
[2022-06-19] MEDS: glipiZIDE 5 MG TAB PO SCH (17:13)
[2022-06-19] MEDS: HumaLOG 300 UNITS/3 ML VIAL SC PRN (17:19)
[2022-06-19] MEDS: Thiamine HCl 200 MG/2 ML VIAL SLOW IVP SCH (21:39)
[2022-06-20] MEDS: Meropenem 1 GM in Sodium Chloride 0.9% 100 ML IVPB SCH ×2 (03:31→12:24)
[2022-06-20 04:54] LABS: #Basophils 0.1 thou/uL (0.0-0.2); #Eosinphils 0.1 thou/uL (0.0-0.7); #Lymphocytes 1.7 thou/uL (1.20-3.40); #Monocytes 0.5 thou/uL (0.11-0.59); #Neutrophils 3.5 thou/uL (1.40-6.50); %Basophils 0.9 % (0.0-1.0); %Eosinophils 2.4 % (0.0-10.0); %Lymphocytes 28.8 % (21.0-51.0); %Monocytes 8.5 % (0.0-10.0); %Neutrophils 59.4 % (42.0-75.0); Hemoglobin 8.9 g/dL (14.0-18.0); Mean Corpuscular HGB CONC 33.4 g/dL (32.0-36.0); Mean Corpuscular Hemoglobin 30.6 pg (27.0-31.0); Mean Corpuscular Volume 91.5 fL (78.0-98.0); Mean Platelet Volume 8.1 fL (7.4-10.4); Platelet Count 262 thou/uL (130-400); RBC Distribution Width 11.7 % (11.5-14.5); Red Blood Cell (RBC) Count 2.91 mill/uL (4.70-6.10); White Blood Cell (WBC) Count 5.8 thou/uL (4.8-10.8)
[2022-06-20 05:12] LABS: Anion Gap 13 mmol/L (10-20); BUN (Urea Nitrogen) 23 mg/dL (8.9-20.6); Calc. Creatinine Clearance 54 mL/min (70-130); Calcium 7.9 mg/dL (7.8-10.44); Carbon Dioxide 26 mmol/L (22-29); Chloride 104 mmol/L (98-107); Estimated GFR 59; Glucose 142 mg/dL (70-105); Potassium 3.5 mmol/L (3.5-5.1); Sodium 139 mmol/L (136-145)
[2022-06-20] MEDS ORDERED: Potassium Chloride 20 MEQ TAB PO SCH (08:00)
[2022-06-20] MEDS: glipiZIDE 5 MG TAB PO SCH ×2 (09:18→15:47)
[2022-06-20] MEDS: Heparin 5,000 UNITS/ML VIAL SC SCH (09:18)
[2022-06-20] MEDS: Nystatin 500,000 UNITS/5 ML UDCUP SSW SCH ×4 (09:18→21:12)
[2022-06-20] MEDS: Pantoprazole 40 MG VIAL IVP SCH (09:18)
[2022-06-20 16:12] VITALS: BP 128/72; TEMP 98.3
[2022-06-20] MEDS: HumaLOG 300 UNITS/3 ML VIAL SC PRN (17:25)
== END 2022-06-20 21:37 | disposition home or self-care (01) | DRG 871 ==
LOC: ERS 16:35 → CCU 18:04 → 2NO 06-14 20:24
PROVIDERS: ADMIT Hospitalist; ATTEND Hospitalist
PROC: 3E03329 Introduction of Other Anti-infective into Peripheral Vein, Percutaneous Approach (ICD-10-PCS; principal; 2022-06-09)
PROC: 3E043XZ Introduction of Vasopressor into Central Vein, Percutaneous Approach (ICD-10-PCS; 2022-06-09)
PROC: 5A1945Z Respiratory Ventilation, 24-96 Consecutive Hours (ICD-10-PCS; 2022-06-09)
PROC: 06HY33Z Insertion of Infusion Device into Lower Vein, Percutaneous Approach (ICD-10-PCS; 2022-06-09)
PROC: 5A1D70Z Performance of Urinary Filtration, Intermittent, Less than 6 Hours Per Day (ICD-10-PCS; 2022-06-09)
PROC: 0BH17EZ Insertion of Endotracheal Airway into Trachea, Via Natural or Artificial Opening (ICD-10-PCS; 2022-06-09)
DX: A41.9 Sepsis, unspecified organism (principal); Z20.822 Contact with and (suspected) exposure to COVID-19; Z23 Encounter for immunization; G93.41 Metabolic encephalopathy; J96.01 Acute respiratory failure with hypoxia; R65.21 Severe sepsis with septic shock; K85.90 Acute pancreatitis without necrosis or infection, unspecified; N17.0 Acute kidney failure with tubular necrosis; I21.A1 Myocardial infarction type 2; M62.82 Rhabdomyolysis; K92.1 Melena; E87.4 Mixed disorder of acid-base balance; N39.0 Urinary tract infection, site not specified; R13.12 Dysphagia, oropharyngeal phase; R77.8 Other specified abnormalities of plasma proteins; G93.89 Other specified disorders of brain; I48.0 Paroxysmal atrial fibrillation; E87.5 Hyperkalemia; D64.9 Anemia, unspecified; E11.65 Type 2 diabetes mellitus with hyperglycemia; E87.6 Hypokalemia; B37.2 Candidiasis of skin and nail; D69.6 Thrombocytopenia, unspecified; Z89.421 Acquired absence of other right toe(s); Z98.890 Other specified postprocedural states; Z78.1 Physical restraint status
CPT/HCPCS: 31500; 36415; 36416; 36556; 36600; 51702; 51798; 70450; 71045; 74230; 76770; 80048; 80053; 80202; 80307; 81001; 82140; 82274; 82533; 82550; 82553; 82570; 82805; 83036; 83605; 83690; 83735; 84100; 84300; 84484; 85025; 85610; 85730; 86704; 86850; 86900; 86901; 87040; 87340; 87811; 90471; 90732; 90935; 93005; 93306; 94002; 94003; 94760; 96361; 96374; 96375; 96376; 99292; C9113; G0009; G0257; J0692; J1100; J1642; J1644; J1815; J1940; J2185; J2250; J2704; J3010; J3370; J3411; J3475; J3480; J3490; J7070; U0002